=== PATIENT | female | born 1985 | race Hispanic/Latino ===

== ENCOUNTER 2017-10-02 17:49 | Emergency (ER) | payer OTHER ==
[~2017-10-02] VITALS: Ht 162.6 cm; Wt 122.5 kg
[~2017-10-02 17:49] MED LIST: LISINOPRIL10 MG PO
[2017-10-02] MEDS ORDERED: HYDROCODONE/APAP 5MG-325MG TAB PO ONE (18:15)
[2017-10-02] MEDS ORDERED: CYCLOBENZAPRINE HCL 10 MG TAB PO ONE (19:00)
== END 2017-10-02 18:49 | disposition home or self-care (01) ==
LOC: FSED 17:49
DX: M54.2 Cervicalgia (principal); M54.6 Pain in thoracic spine; S23.3XXA Sprain of ligaments of thoracic spine, initial encounter; V43.52XA Car driver injured in collision with other type car in traffic accident, initial encounter
CPT/HCPCS: 72072; 99284

== ENCOUNTER 2022-09-13 03:24 | Inpatient (IN) | payer OTHER ==
[~2022-09-13] VITALS: Ht 162.6 cm; Wt 122.5 kg
[2022-09-13] VITALS (8 sets, daily range): BP systolic 125–159; BP diastolic 79–105; PULSE 54–68; RESP 16–19; TEMP 98.1–98.8; O2SAT 97–100
[2022-09-13] MEDS ORDERED: ONDANSETRON HCL INJ 2MG/ML 2ML 2 MG/ML VIAL IV STA (03:35)
[2022-09-13] MEDS ORDERED: FAMOTIDINE 20 MG/2 ML VIAL IV STA (03:35)
[2022-09-13] MEDS ORDERED: IOPAMIDOL 370 MG/ML 100 ML INFUS..BTL INJ ONE (04:13)
[2022-09-13 04:15] LABS: BASOPHILS # (AUTO) 0.1 (0.0-0.1); BASOPHILS % 0.7 % (0.0-1.0); EOSINOPHILS # (AUTO) 0.1 (0.0-0.4); EOSINOPHILS % 0.9 % (0.0-6.0); HEMATOCRIT 40.2 % (34.2-44.1); HEMOGLOBIN 13.6 g/dL (12.0-16.0); LYMPHOCYTES % 10.6 % (18.0-39.1); MEAN CORPUSCULAR HEMOGLOBIN 29.9 pg (28-32); MEAN CORPUSCULAR HGB CONC 33.8 g/dL (31-35); MEAN CORPUSCULAR VOLUME 88.4 fL (81-99); MONOCYTES # (AUTO) 0.5 (0.2-0.8); MONOCYTES % 5.6 % (4.4-11.3); NEUTROPHILS # (AUTO) 7.7 (2.1-6.9); NEUTROPHILS % 81.9 % (38.7-80.0); PLATELET COUNT 299 x10e3/uL (140-360); RED BLOOD COUNT 4.55 x10e6/uL (3.6-5.1); RED CELL DISTRIBUTION WIDTH 12.9 % (11.7-14.4)
[2022-09-13 04:29] LABS: ALBUMIN 3.4 g/dL (3.5-5.0); ALBUMIN/GLOBULIN RATIO 0.9 (0.8-2.0); ANION GAP 12.2 mmol/L (8-16); CALCIUM 8.9 mg/dL (8.4-10.2); CREATININE, SERUM 0.84 mg/dL (0.57-1.11); POTASSIUM 4.2 mmol/L (3.5-5.1)
[2022-09-13] MEDS: SODIUM CHLORIDE 0.9% 1000ML 1,000 ML IV SCH ×2 (05:51→16:52)
[2022-09-13 06:02] LABS: CLARITY,URINE CLEAR (CLEAR); COLOR,URINE YELLOW (YELLOW); KETONES,URINE 1+ (NEGATIVE); LEUKOCYTE ESTERASE ,URINE NEGATIVE (NEGATIVE); NITRITE,URINE NEGATIVE (NEGATIVE); PROTEIN,URINE DIPSTICK NEGATIVE (NEGATIVE); URINE UROBILINOGEN 1 mg/dL (0.2 - 1)
[2022-09-13 06:07] LABS: BACTERIA,URINE FEW /HPF; EPITHELIAL CELLS,URINE FEW /LPF; RBC,URINE 0-5 /HPF (0-5); WBC,URINE (MAN) 0-5 /HPF (0-5)
[2022-09-13] MEDS: VALSARTAN 160 MG TAB PO SCH ×2 (06:24→10:04)
[2022-09-13] MEDS: METOPROLOL SUCCINATE 25 MG TAB XL PO SCH ×2 (06:25→10:04)
[2022-09-13] MEDS: Morphine 4mg INJECTION 4 MG/ML INJ IV PRN (07:26)
[2022-09-13] MEDS ORDERED: ONDANSETRON HCL INJ 2MG/ML 2ML 2 MG/ML VIAL IV PRN (07:30)
[2022-09-13] MEDS ORDERED: GADOBENATE DIMEGLUMINE 1 ML IV ONE (10:30)
[2022-09-14] VITALS (8 sets, daily range): BP systolic 132–164; BP diastolic 90–98; PULSE 54–80; RESP 16–18; TEMP 97.9–98.7; O2SAT 96–100
[2022-09-14] MEDS: SODIUM CHLORIDE 0.9% 1000ML 1,000 ML IV SCH ×3 (05:22→18:22)
[2022-09-14 06:21] LABS: BASOPHILS # (AUTO) 0.1 (0.0-0.1); EOSINOPHILS # (AUTO) 0.2 (0.0-0.4); EOSINOPHILS % 2.9 % (0.0-6.0); HEMATOCRIT 34.9 % (34.2-44.1); HEMOGLOBIN 11.7 g/dL (12.0-16.0); LYMPHOCYTES # (AUTO) 1.9 (1.0-3.2); MEAN CORPUSCULAR HEMOGLOBIN 29.8 pg (28-32); MEAN CORPUSCULAR HGB CONC 33.5 g/dL (31-35); MONOCYTES # (AUTO) 0.5 (0.2-0.8); MONOCYTES % 8.2 % (4.4-11.3); NEUTROPHILS # (AUTO) 3.6 (2.1-6.9); NEUTROPHILS % 57.4 % (38.7-80.0); PLATELET COUNT 251 x10e3/uL (140-360); RED BLOOD COUNT 3.92 x10e6/uL (3.6-5.1); RED CELL DISTRIBUTION WIDTH 13.2 % (11.7-14.4)
[2022-09-14 07:08] LABS: ALANINE AMINOTRANSFERASE 477 IU/L (0-55); ALBUMIN 2.7 g/dL (3.5-5.0); ALBUMIN/GLOBULIN RATIO 0.8 (0.8-2.0); ALKALINE PHOSPHATASE 115 IU/L (40-150); ANION GAP 10.7 mmol/L (8-16); BLOOD UREA NITROGEN < 5 mg/dL (7-26); CALCIUM 8.2 mg/dL (8.4-10.2); CARBON DIOXIDE 24 mmol/L (22-29); CHLORIDE 111 mmol/L (98-107); CHOLESTEROL 143 MD/DL (0-199); CREATININE, SERUM 0.71 mg/dL (0.57-1.11); GLUCOSE 81 mg/dL (74-118); POTASSIUM 3.7 mmol/L (3.5-5.1); SODIUM 142 mmol/L (136-145); TRIGLYCERIDES 99 MG/DL (0-149)
[2022-09-14 07:10] LABS: BUN/CREATININE RATIO 7 (6-25)
[2022-09-14 07:35] LABS: CHOL/HDL RATIO 3.6 (3.0-3.6); HDL CHOLESTEROL 40 MG/DL (40-60); LDL CHOLESTEROL 83 MG/DL (60-130)
[2022-09-14] MEDS: VALSARTAN 160 MG TAB PO SCH (09:15)
[2022-09-14] MEDS: METOPROLOL SUCCINATE 25 MG TAB XL PO SCH (09:15)
[2022-09-15] VITALS (7 sets, daily range): BP systolic 149–161; BP diastolic 84–95; PULSE 55–61; RESP 16–20; TEMP 98.1–98.9; O2SAT 98–100
[2022-09-15] MEDS: ACETAMINOPHEN 325 MG TAB PO PRN (01:10)
[2022-09-15] MEDS: METOPROLOL SUCCINATE 25 MG TAB XL PO SCH ×2 (08:14→12:56)
[2022-09-15] MEDS: VALSARTAN 160 MG TAB PO SCH ×2 (08:14→12:57)
[2022-09-15 10:51] LABS: ALANINE AMINOTRANSFERASE 442 IU/L (0-55); ALBUMIN 3.4 g/dL (3.5-5.0); ALKALINE PHOSPHATASE 155 IU/L (40-150); ANION GAP 12.8 mmol/L (8-16); BLOOD UREA NITROGEN < 5 mg/dL (7-26); CALCIUM 8.8 mg/dL (8.4-10.2); CARBON DIOXIDE 20 mmol/L (22-29); CHLORIDE 107 mmol/L (98-107); CREATININE, SERUM 0.71 mg/dL (0.57-1.11); GLUCOSE 81 mg/dL (74-118); POTASSIUM 3.8 mmol/L (3.5-5.1); SODIUM 136 mmol/L (136-145)
[2022-09-15 10:52] LABS: BUN/CREATININE RATIO 7 (6-25)
[2022-09-15] MEDS ORDERED: Morphine 4mg INJECTION 4 MG/ML INJ ONE (11:46)
[2022-09-16] VITALS (10 sets, daily range): BP systolic 137–175; BP diastolic 78–98; PULSE 60–91; RESP 16–20; TEMP 98.3–99.7; O2SAT 96–99
[2022-09-16] MEDS: SODIUM CHLORIDE 0.9% 1000ML 1,000 ML IV SCH ×4 (00:11→22:12)
[2022-09-16] MEDS: VALSARTAN 160 MG TAB PO SCH (08:55)
[2022-09-16] MEDS: METOPROLOL SUCCINATE 25 MG TAB XL PO SCH (08:55)
[2022-09-16] MEDS ORDERED: MIDAZOLAM HCL 2 MG/2 ML VIAL ONE (12:57)
[2022-09-16] MEDS ORDERED: FENTANYL CITRATE/PF 100MCG/2 ML INJ ONE ×2 (12:57→13:05)
[2022-09-16] MEDS ORDERED: GLYCOPYRROLATE INJ 0.2 MG/ML VIAL ONE (13:32)
[2022-09-16] MEDS ORDERED: ROCURONIUM BROMIDE 10 MG/ML 5ML VIAL IV ONE (13:32)
[2022-09-16] MEDS ORDERED: SEVOFLURANE INHAL SOLN 250 ML PEN BTL ONE (13:32)
[2022-09-16] MEDS ORDERED: POVIDONE IODINE 0.05% 0.05 % ML PO ONE (13:32)
[2022-09-16] MEDS ORDERED: METOCLOPRAMIDE HCL 10 MG/2ML VIAL ONE (13:32)
[2022-09-16] MEDS ORDERED: LIDOCAINE HCL 2% LOCAL INJ 5 ML SDV VIAL INJ ONE (13:32)
[2022-09-16] MEDS ORDERED: SUCCINYLCHOLINE CHLORIDE 20 MG/ML 10ML VIAL ONE (13:32)
[2022-09-16] MEDS ORDERED: NEOSTIGMINE 1 MG/ML 10ML VIAL ONE (13:32)
[2022-09-16] MEDS ORDERED: KETOROLAC TROMETHAMINE 30 MG/ML VIAL ONE (13:32)
[2022-09-16] MEDS ORDERED: DEXAMETHASONE SOD PHOS INJ 4 MG/ML SDV ONE (13:32)
[2022-09-16] MEDS ORDERED: PROPOFOL IV EMULSION 10 MG/ML 20 ML VIAL ONE (13:32)
[2022-09-16] MEDS ORDERED: BUPIVACAINE HCL 0.5% INJ 30 ML VIAL INJ ONE (15:19)
[2022-09-16] MEDS ORDERED: HYDROCODONE/APAP 5MG-325MG TAB PO PRN (16:45)
[2022-09-16] MEDS ORDERED: ONDANSETRON HCL INJ 2MG/ML 2ML 2 MG/ML VIAL IV PRN (16:45)
[2022-09-16] MEDS: FENTANYL CITRATE/PF 100MCG/2 ML INJ ONE ×3 (16:51→17:06)
[2022-09-16] MEDS: Morphine 4mg INJECTION 4 MG/ML INJ IV PRN (17:37)
[2022-09-16] MEDS ORDERED: HYDRALAZINE HCL 20 MG/ML VIAL IV PRN (18:30)
[2022-09-17] VITALS (9 sets, daily range): BP systolic 146–174; BP diastolic 78–105; PULSE 68–103; RESP 16–20; TEMP 98.1–99.1; O2SAT 93–99
[2022-09-17] MEDS: SODIUM CHLORIDE 0.9% 1000ML 1,000 ML IV SCH (02:45)
[2022-09-17] MEDS: ACETAMINOPHEN 325 MG TAB PO PRN (04:10)
[2022-09-17 05:01] LABS: BASOPHILS % 0.1 % (0.0-1.0); HEMATOCRIT 39.6 % (34.2-44.1); HEMOGLOBIN 13.2 g/dL (12.0-16.0); LYMPHOCYTES # (AUTO) 0.6 (1.0-3.2); LYMPHOCYTES % 5.3 % (18.0-39.1); MEAN CORPUSCULAR HEMOGLOBIN 29.8 pg (28-32); MEAN CORPUSCULAR HGB CONC 33.3 g/dL (31-35); MEAN CORPUSCULAR VOLUME 89.4 fL (81-99); MONOCYTES # (AUTO) 0.4 (0.2-0.8); NEUTROPHILS # (AUTO) 10.5 (2.1-6.9); NEUTROPHILS % 90.7 % (38.7-80.0); PLATELET COUNT 314 x10e3/uL (140-360); RED BLOOD COUNT 4.43 x10e6/uL (3.6-5.1); RED CELL DISTRIBUTION WIDTH 13.1 % (11.7-14.4)
[2022-09-17 05:25] LABS: ALBUMIN 3.3 g/dL (3.5-5.0); ALBUMIN/GLOBULIN RATIO 0.9 (0.8-2.0); ANION GAP 19.2 mmol/L (8-16); CREATININE, SERUM 0.75 mg/dL (0.57-1.11); POTASSIUM 4.2 mmol/L (3.5-5.1)
[2022-09-17] MEDS: METOPROLOL SUCCINATE 25 MG TAB XL PO SCH (07:56)
[2022-09-17] MEDS: VALSARTAN 160 MG TAB PO SCH (08:04)
[2022-09-17] MEDS ORDERED: TOPROL XL25 MG PO (15:06)
[2022-09-17] MEDS ORDERED: DIOVAN160 MG PO (15:06)
[2022-09-17] MEDS ORDERED: ULTRAM 50MG50 MG PO (15:31)
== END 2022-09-17 16:02 | disposition home or self-care (01) | DRG 418 ==
LOC: ER 03:30 → INTOOBSV 05:25 → ERHOLD 05:25 → MED/SURG2 06:37 → OBSVTOIN 09-15 12:22
PROVIDERS: ADMIT Internal Medicine; ATTEND Internal Medicine
PROC: 0FT44ZZ Resection of Gallbladder, Percutaneous Endoscopic Approach (ICD-10-PCS; principal; 2022-09-16 15:40)
DX: K80.10 Calculus of gallbladder with chronic cholecystitis without obstruction (principal); Z68.42 Body mass index [BMI] 45.0-49.9, adult; I10 Essential (primary) hypertension; E66.01 Morbid (severe) obesity due to excess calories; R74.01 Elevation of levels of liver transaminase levels; Z20.822 Contact with and (suspected) exposure to COVID-19; Z59.6 Low income
CPT/HCPCS: 0223U; 36415; 74177; 74183; 76705; 78227; 80053; 80061; 81001; 83690; 84702; 85025; 88304; 93005; 94799; 96361; 99252; 99284; A9537; G0378; J0330; J1100; J1885; J2001; J2250; J2270; J2405; J2543; J2710; J2765; J7030; Q9967